=== PATIENT | male | born 1955 | race Caucasian/White ===

== ENCOUNTER → 2021-05-23 07:08 | Outpatient (CLI) | payer OTHER, SELFPAY ==
--- NOTE | 2021-05-23 07:18 | MRI_ITS ---
STUDY: MR PELVIS WITH AND WITHOUT CONTRAST (PROSTATE) REASON FOR EXAM: Male, 65 years old. Elevated PSA TECHNIQUE: Standardized multiparametric prostate MRI with T1, T2, DWI/ADC sequences were obtained in 3 orthogonal planes, and dynamic contrast enhancement sequences. 17 ml of Dotarem contrast material was administered intravenously for the contrast portion of the examination. COMPARISON: 09/23/2019 FINDINGS: The prostate volume measures 80 mm3. The contours of the prostate gland are lobulated. There is mass effect on the bladder base. The transition zone is heterogenous. PI-RADS DWI score 3 - Focal mildly hypointense on ADC and isointense/mildly hyperintense on high b-value DWI. PI-RADS T2W score 2 - A mostly encapsulated nodule OR a homogeneous circumscribed nodule without encapsulation (atypical nodule) or a homogeneous mildly hypointense area between nodules.. Contrast enhancement no early or contemporaneous enhancement; or diffuse multifocal enhancement NOT corresponding to a focal finding on T2W and/or DWI or focal ehancement responding to a lesion demonstrating features of BPH onT2WI (including features of extruded BPH in the PZ). The peripheral zone is heterogenous. PI-RADS DWI score 1 - No abnormality (normal) on ADC or high b-value DWI. PI-RADS T2W score 2 - Linear, wedge-shaped, or diffuse mild hypointensity, usually with indistinct margin. Contrast enhancement no early or contemporaneous enhancement; or diffuse multifocal enhancement NOT corresponding to a focal finding on T2W and/or DWI or focal enhancement responding to a lesion demonstrating features of BPH onT2WI (including features of extruded BPH in the PZ). The seminal vesicles demonstrate normal margins and T2 signal pattern. No mass lesion or invasion depicted. The rectoprostatic angles are normal. Urinary bladder is normal without wall thickening. The vascular structures of the are normal. The visualized hollow viscus structures are normal. No bone marrow edema or mass lesion depicted. MRI/Pelvis W/WO Contrast IMPRESSION: 1. PIRADS v2.1 2019 -- 2 - Low (clinically significant cancer is unlikely), which is stable since prior study (2020). Prostatomegaly with benign prostatic hypertrophy. Electronically Signed: Scott Cochran MD (Brooks) at 12:21 EDT , Service support ,
[2021-05-23 07:30] LABS: CREATININE FINGERSTICK 0.6 mg/dL (0.70-1.30); EGFR FINGERSTICK > 60.0000 mL/min (>60)
== END ==
LOC: MRI 07:10
PROVIDERS: PCP Internal Medicine; Referring Provider Urology; Visit Provider Urology
DX: R97.20 Elevated prostate specific antigen [PSA] (principal); C61 Malignant neoplasm of prostate
CPT/HCPCS: 72197; A9575

== ENCOUNTER → 2022-11-20 | Outpatient (CLI) | payer MEDICARE, OTHER, SELFPAY | END | disposition home or self-care (01) | LOC: LABSPEC 15:22 | PROVIDERS: PCP Internal Medicine; Referring Provider Physician Assistant; Visit Provider Physician Assistant | DX: J02.9 Acute pharyngitis, unspecified (principal) | CPT/HCPCS: 87070 ==

== ENCOUNTER 2023-04-29 10:26 | Observation (INO) | payer MEDICARE, OTHER, SELFPAY ==
--- NOTE | 2023-04-27 08:23 | EKG12_ITS ---
Test Reason : PRE OP Blood Pressure : / mmHG Vent. Rate : 059 BPM Atrial Rate : 059 BPM P-R Int : 106 ms QRS Dur : 090 ms QT Int : 416 ms P-R-T Axes : 054 062 070 degrees QTc Int : 411 ms Sinus bradycardia with short W[place] Otherwise normal ECG Confirmed by ALYSSA TRUJILLO, MICHAEL ([id number]), photographic editor JOSE ENRIQUE PIMENTEL ([id number]) on 04/28/2023 2:44:02 PM Referred By: Rinku Garcia Confirmed By:MICHAEL SHAH MD
[2023-04-29] VITALS (10 sets, daily range): BP systolic 152–176; BP diastolic 67–90; PULSE 56–88; RESP 16–18; TEMP 36.2–36.8; O2SAT 97–100; BMI 25.4
--- NOTE | 2023-04-29 | PROS_PTH ---
PATIENT: LARRY FIELD LOC: [facility] U#:[id number] AGE/SX: 67/M [place]OM: [facility] [place]29/[address]: Dr. Rinku Garcia MD : 1955 BED: 1 DIS: 04/30/2023 SPEC #: [id number] RECD: 04/29/23 10:40 STATUS: MCKAYLA DWYER #: [id number] IRMA: 04/29/23 00:[address]: Rinku Garcia DEPT: SURGICAL PATHOLOGY RECD BY: Nunu Pagan ENTERED: 04/29/23 12:36 SP TYPE: TURP OTHR DR: Dr. Kavya Kaur MD Tissues: Prostate, NOS Procedures: Surgery Specimen Level IV HEADER OPERATION: Cysto, transurethral resection prostate, Olympus PRE-OP DIAGNOSIS: BPH with obstruction TISSUE SUBMITTED: Prostate chips MICROSCOPIC DIAGNOSIS Prostate chips, transurethral resection: Benign prostatic hyperplasia, glandular and stromal type. Focal chronic inflammation. Rare fragments of calcified material, favor stone. SJ:yamila 04/30/2023 MICROSCOPIC DESCRIPTION Slides are reviewed. GROSS DESCRIPTION Received is one container labeled with the patient's name and designated prostate chips. The specimen consists of multiple irregular fragments of pink-kim, rubbery, soft tissue that in aggregate weigh 18.1 gm and measure in aggregate 6.0 x 6.0 x 1.7 cm. Board Runner portions are submitted in ten cassettes. / AM:yamila 04/29/2023 TC:5 CPT: 67270
[2023-04-29] MEDS: Lactated Ringers 1,000 ML 15 ML IV (08:17)
--- NOTE | 2023-04-29 09:12 | HP.PCM_ITS ---
HPI - General General Date of Service: 04/29/23 Chief Complaint: Bladder tumor HPI Narrative LARRY FIELD, is a 67 M who presents for transurethral resection of bladder tumor [facility] Medical History (Updated 04/29/23 @ 09:[address] Rinku Garcia MD) Acute pharyngitis, unspecified Alcohol use Arthritis Cardiology follow-up encounter Former smoker High cholesterol High triglycerides History of ankle fracture History of diverticulitis Hypertension Loss of hearing Marijuana use Prostate cancer Seasonal allergies Wears glasses Home Medications glucosamine sulfate 500 mg tablet (Glucosamine) 500 mg PO BID 09/17/20 [History Last Taken Unknown] [id number] 300 mcg-K 60 mcg-lycop 600 mcg-lutein 300 mcg tablet (Men 50 Plus Multivitamin) 1 tab PO DAILY 09/17/20 [History Last Taken Unknown] omega-3 fatty acids 1,000 mg capsule (Fish Oil Concentrate) 1,000 mg PO DAILY 09/17/20 [History Last Taken 04/10/23] finasteride 5 mg tablet 5 mg PO DAILY 09/18/22 [History Last Taken Unknown] lisinopril 10 mg tablet 10 mg PO DAILY #90 tabs 09/18/22 [Rx Last Taken Unknown] tamsulosin 0.4 mg capsule 0.8 mg PO QHS 04/24/23 [History Last Taken Unknown] Allergy/AdvReac Type Severity Reaction Status Date / Time No Known Allergies Allergy Verified 04/29/23 08:08 Family History Father Myocardial infarction, Onset Age: 63 Hypertension Heart disease Mother High cholesterol Hypertension Surgical History (Updated 04/24/23 @ 09:17 by Brigette Ramirez) History of arthroscopic knee surgery History of cardiac catheterization Hx of colonoscopy Hx of thumb surgery Social History Smoking Status: Former smoker Smokeless tobacco user: other Electronic Cigarette Use: not used second hand exposure: No alcohol intake: current alcohol intake frequency: a few times a week Alcohol type: beer substance use type: former substance user Date of last use: Used marijana in his teens ROS Constitutional Constitutional: Denies chills, fever(s) or malaise Eyes Eyes: Denies blurry vision or change in vision ENT HEENT: Reports none Cardiovascular Cardiovascular: Denies chest pain or palpitations Respiratory/Chest Respiratory/Chest: Denies cough or shortness of breath with exertion Gastrointestinal Gastrointestinal: Denies abdominal pain, constipation or diarrhea Musculoskeletal Musculoskeletal: Denies back pain, joint stiffness or joint swelling Integumentary Integumentary: Denies dry skin, jaundice, lesions or rash Neurologic Neurologic: Denies confusion, syncope or weakness Psychiatric Psychiatric: Reports none; Denies anxiety or depression Endocrine Endocrinology: Denies excessive sweating, fatigue or flushing Hematologic/Lymphatic Hematologic/Lymphatic: Denies anemia, easy bleeding or easy bruising Vital Signs Vital Signs Vital Signs: 04/29/23 08:11 04/29/23 08:11 Temperature 98.2 F Temperature Source Temporal Pulse Rate 60 Respiratory Rate 18 Respiratory Pattern Normal Blood Pressure 176/79 H Blood Pressure Mean 111 Blood Pressure Source Monitor Blood Pressure Position Sitting Blood Pressure Location Left Arm Pulse Ox 99 Oxygen Delivery Method Room Air Weight Weight: 85 kg Body Mass Index (BMI) 25.4 Physical Exam Const alert and oriented x3 General Appearance: cooperative HEENT normocephalic, head/scalp atraumatic, EAC's normal and TM's normal bilaterally Eyes PERRL and EOMs intact bilaterally Pupil: sluggish Neck no lymphadenopathy, supple and no JVD General: trachea midline Lymph Lymphatic: no lymphadenopathy noted, lymphedema and lymphadenopathy Resp normal respiratory effort, normal air movement and clear to auscultation bilaterally Cardio regular rate, regular rhythm and peripheral pulses 2+ throughout GI soft to palpation, non-tender and non-distended Extremity normal capillary refill and no clubbing, cyanosis or edema General Extremity: no tenderness to palpation of joints or extremities Skin no rashes or lesions noted General Skin Exam: turgor normal Lesions: no lesions Rashes: no rashes Neuro CN's II-XII intact bilaterally Speech: speech normal Motor Exam: strength 5/5 throughout; Negative for general weakness Psych thought process normal, cooperative and affect normal Appearance: appropriate Results Lab / Micro Data Attestation: I reviewed the patient's lab results. Assessment & Plan Assessment/Plan (1) Bladder tumor: PLAN: Plan for transurethral section of bladder tumor
[2023-04-29] MEDS: Cefazolin 2 GM in 0.9% Normal Saline (100mL Bag) 100 ML IV (09:29)
--- NOTE | 2023-04-29 10:19 | DCINST_ITS ---
Discharge Instructions Diet Discharge Diet: No restrictions and Light diet - advance as tolerated Activity Discharge Activity: Return to Normal Activity Follow Up Care Please Follow Up With: Rinku Garcia MD When: call for appt Test Results: Test results from this visit will be discussed in further detail at your follow- up appointment, if applicable. Discharge Plan Admission Attending Provider: Rinku Garcia Primary Care Provider: Kavya Kaur Discharge Orders/Prescriptions Prescriptions: No Action glucosamine sulfate [Glucosamine] 500 mg tablet 500 mg PO BID Rx Instructions: administer with meals omega-3 fatty acids [Fish Oil Concentrate] 1,000 mg capsule 1,000 mg PO DAILY Men 50 Plus Multivitamin 300-600-300 mcg tablet 1 tab PO DAILY finasteride 5 mg tablet 5 mg PO DAILY tamsulosin 0.4 mg capsule 0.8 mg PO QHS lisinopril 10 mg tablet 10 mg PO DAILY Qty: 90 3RF Other Ambulatory Orders: 12 Lead EKG (Routine) Timeframe: [id number] Facility: [facility] - Location: Cardiovascular Services Ordered By: Dr. Surjit White Referrals / Follow Up: Kavya Kaur MD [Primary Care Provider] - Disposition Disposition (needs filled in before D/C Order can be placed): Home, Self Care
--- NOTE | 2023-04-29 10:20 | PCM.OPRPT ---
Report of Operation Date of Procedure: 04/29/23 Pre-Operative Diagnosis: BPH with obstruction Post-Operative Diagnosis: The same Surgery/Procedure Performed:: Transurethral section of prostate Description of Surgical Findings:: This is a 67-year-old male with history of low-grade prostate cancer is on active surveillance for this he does have history of BPH with significant urinary symptoms and obstruction he is on maximal medical therapy with Flomax and Proscar and despite medical therapy still having difficulty with emptying his bladder slow stream slow emptying he is not happy with the way he is having to go bathroom frequently urgency pain and problems with urinating so organ to proceed with a transurethral resection of the prostate to alleviate the obstruction Patient was taken back to the operating at the smooth induction of general anesthesia he was placed in dorsolithotomy position. The penis testicles prepped and draped usual sterile fashion went into the bladder with a 24 Indonesian noncontinuous flow bipolar Olympus resectoscope using the median loop I marked out the sphincter marked out the right and from the verumontanum circumferentially the limit by my resection I then started at the 12 o'clock position and resected back to that maggie and then worked my way down to the 12 o'clock position to the 6 o'clock position on the right side of the prostate and then resected back to the verumontanum and then went to the left side the prostate resected back to the room and montanum again I then did a flow test had a wide open flow I then resected the apical tissue very carefully but sphincter looked intact no resection past the verumontanum and after the flow test was done I then cauterized extensively had good cauterization and obtain good hemostasis I then placed the catheter in the bladder for continuous irrigation the urine was clear all the chips were Ellik out of the bladder patient anesthetic was reversed and taken back to PACU in good condition we will keep him overnight for irrigation and then will take out the catheter tomorrow morning for voiding trial Surgeon: Rinku Garcia Type of Anesthesia: General Drains: [address] Estimated Blood Loss (mL): 20 Admit VTE Documentation VTE Present on Admission: No VTE Mechan Device Prophylaxis: SCD's VTE Pharm Prophylaxis ordered?: No
[2023-04-29] MEDS: Ciprofloxacin 500 MG Tablet PO (20:53)
[2023-04-29] MEDS: Tamsulosin HCl 0.4 MG Capsule 0.8 MG PO (20:53)
[2023-04-29] MEDS: 0.9% Normal Saline (1000mL) 1,000 ML 125 ML IV (20:53)
[2023-04-29] MEDS: Docusate Sodium 100 MG Capsule 200 MG PO (20:53)
[2023-04-30] MEDS: 0.9% Normal Saline (1000mL) 1,000 ML 125 ML IV (01:50)
[2023-04-30 05:00] VITALS: BP 144/73; PULSE 60; RESP 16; TEMP 36.6; O2SAT 98
--- NOTE | 2023-04-30 07:15 | PCM.PN.GU ---
Subjective Subjective Status post TURP urine is doing okay catheter can be removed this morning and as long as he can urinate okay to go home without a catheter. Objective Data Objective Data Vital Signs: Vital Signs Temp Pulse Resp BP Pulse Ox O2 Del Method 97.8 F 60 16 144/73 H 98 Room Air 04/30/23 05:00 04/30/23 05:00 04/30/23 05:00 04/30/23 05:00 04/30/23 05:00 04/30/23 05:00 Oxygen Delivery Method Room Air Weight: 85 kg Body Mass Index (BMI) 25.4 Intake & Output: Intake and Output for Last 24 Hours 04/28/23 04/29/23 04/30/23 23:59 23:59 23:59 Intake Total 1459.75 / 1459.75 618.75 / 618.75 Output Total 8000 / 8000 Balance -6540.25 / -6540.25 618.75 / 618.75
[2023-04-30 09:16] VITALS: BP 148/66; PULSE 70; RESP 16; TEMP 37; O2SAT 98
[2023-04-30] MEDS: Multivitamins,Ther W-Minerals Tablet 1 TABLET PO (09:25)
[2023-04-30] MEDS: Ciprofloxacin 500 MG Tablet PO (09:25)
[2023-04-30] MEDS: Lisinopril 10 MG Tablet PO (09:25)
[2023-04-30] MEDS: Finasteride 5 MG Tablet PO (09:25)
[2023-04-30] MEDS: Docusate Sodium 100 MG Capsule 200 MG PO (09:25)
--- NOTE | 2023-04-30 10:12 | PHA.DC_ITS ---
Pharmacy [facility] has performed discharge medication reconciliation and counseling for this patient. The patient was counseled on the following discharge medications and changes in medications for homegoing were reviewed. 1. CIPROFLOXACIN The Reason for Use, instructions for use, and potential side effects were reviewed for all new medications. The patient's questions regarding all of their medications were answered. The patient was able to verbally demonstrate an understanding of their discharge medications. The patient's discharge medication list was reviewed for discrepancies and discrepancies were resolved. Medications at Discharge Home Medications glucosamine sulfate 500 mg tablet (Glucosamine) 500 mg PO BID 09/17/20 [id number] 300 mcg-K 60 mcg-lycop 600 mcg-lutein 300 mcg tablet (Men 50 Plus Multivitamin) 1 tab PO DAILY 09/17/20 omega-3 fatty acids 1,000 mg capsule (Fish Oil Concentrate) 1,000 mg PO DAILY 09/17/20 finasteride 5 mg tablet 5 mg PO DAILY 09/18/22 lisinopril 10 mg tablet 10 mg PO DAILY #90 tabs 09/18/22 tamsulosin 0.4 mg capsule 0.8 mg PO QHS 04/24/23 ciprofloxacin HCl 500 mg tablet (Cipro) 500 mg PO BID #10 tabs 04/29/23
--- NOTE | 2023-04-30 11:43 | CHAPLAIN ---
Type of Pastoral Visit _x__ Initial Visit ___ Follow-up Visit ___ On-call Visit ___ General Patient Visit ___ Spiritual Assessment ___ Family Conference ___ Bereavement ___ Rapid Response ___ Code Blue ___ Other (describe below) Pastoral Care Referral From _x__ Patient ___ Family ___ Nurse ___ Physician ___ Beauty Culturist Apprentice ___ Production Line Mechanic ___ Other (describe below) Sacrament/Intervention _x__ Active listening ___ Anointing ___ Spiritism ___ Bereavement ___ Communion ___ Alysha exploration ___ ___ Life review ___ Prayer ___ Reconciliation ___ Sacrament of Sick ___ Supportive presence ___ Wedding ___ Other (describe below) Pastoral Comments patient reports that all things are going well and that he should be leaving today; pt has family support at home; pt is watching events out of the window and talks about his perceptions; pt declines further needs but expresses thanks for the offer
[2023-04-30 13:51] VITALS: BP 138/60; PULSE 63; RESP 16; TEMP 36.5; O2SAT 100
== END 2023-04-30 15:35 | disposition home or self-care (01) ==
LOC: SDC 17:26 → MS3 17:26
PROVIDERS: Admitting Provider Urology; PCP Internal Medicine; Referring Provider Urology; Visit Provider Urology
PROC: 0TBB8ZZ Excision of Bladder, Via Natural or Artificial Opening Endoscopic (ICD-10-PCS; CPT 52601; principal; 2023-04-29 09:35)
DX: N40.1 Benign prostatic hyperplasia with lower urinary tract symptoms (principal); I10 Essential (primary) hypertension; E78.00 Pure hypercholesterolemia, unspecified; Z87.891 Personal history of nicotine dependence; N13.8 Other obstructive and reflux uropathy; Z79.899 Other long term (current) drug therapy; R33.8 Other retention of urine; R35.1 Nocturia; R39.12 Poor urinary stream
CPT/HCPCS: 52601; 00914; 88305; 93005; 96360; 96361; 99221; J7030; J7120; G0378; J2405

== ENCOUNTER → 2023-11-21 | Outpatient (CLI) | payer MEDICARE, OTHER, SELFPAY ==
--- NOTE | 2023-11-21 07:38 | CT_ITS ---
STUDY: CT MAXILLOFACIAL SINUSES REASON FOR EXAM: Male, 68 years old. chronic sinusitis, nasal polyps RADIATION DOSAGE (If Supplied By Facility): CTDIvol = ( ) mGy, DLP = ( ) mGycm TECHNIQUE: The patient was scanned in a multi detector CT scanner. High resolution axial imaging was performed without the administration of intravenous contrast material. Sagittal and coronal images were reconstructed. Individualized dose optimization techniques were used for this CT. COMPARISON: 12/05/2013 FINDINGS: FRONTAL SINUSES: Mucosal thickening in the frontal sinuses consistent with chronic sinusitis. ETHMOIDAL SINUSES: Opacification multiple ethmoid air cells consistent with sinusitis. MAXILLARY SINUSES: Mucosal thickening in the maxillary sinuses worse on the right than the left consistent with chronic sinusitis. SPHENOIDAL SINUSES: Mucosal thickening in the sphenoid sinuses consistent with chronic sinusitis. Occluded ostiomeatal units bilaterally with possible destruction of a portion of the medial wall of the maxillary sinuses bilaterally. Normal bilateral middle turbinates. Normal bilateral inferior turbinates. There is a right sided nasal septal deviation, but without a nasal septal spur. There is patency of the bilateral nasal airways. The visualized osseous structures are normal. The visualized bilateral orbital contents are normal. CT/Sinus/Facial Bone IMPRESSION: 1. Chronic pansinusitis. 2. Occluded ostiomeatal units bilaterally with possible destruction of the medial wall of the maxillary sinuses. 3. Deviation of nasal septum to the right. Electronically Signed: Maico Maldonado MD at 0:15 EDT ,
== END | disposition home or self-care (01) ==
LOC: CT 07:37
PROVIDERS: PCP Internal Medicine; Referring Provider Otolaryngology; Visit Provider Otolaryngology
DX: J33.0 Polyp of nasal cavity (principal); J32.8 Other chronic sinusitis
CPT/HCPCS: 70486

== ENCOUNTER 2023-12-28 07:06 | Day surgery (SDC) | payer MEDICARE, OTHER, SELFPAY ==
--- NOTE | 2023-12-24 07:02 | EKG12_ITS ---
Test Reason : PREOP Blood Pressure : / mmHG Vent. Rate : 049 BPM Atrial Rate : 049 BPM P-R Int : 142 ms QRS Dur : 098 ms QT Int : 426 ms P-R-T Axes : 013 041 054 degrees QTc Int : 384 ms Sinus bradycardia Otherwise normal ECG Confirmed by Davey Rangel ([id number]), editor in chief newspaper ZOYA SEGURA ([id number]) on 12/28/2023 1:11:44 PM Referred By: Ravi Calderón Confirmed By:Davey Rangel
[2023-12-24 08:05] LABS: Hematocrit 42.6 % (40-54); Mean Corp Hgb Conc 32.9 g/dL (32-36); Mean Corpuscular Hgb 29.9 pg (27.0-32.0); Mean Platelet Vol. 9.5 fl (6.2-12.0); Platelet Count 251 K/mm3 (150-450); RBC Distribution Width CV 13.1 % (11.6-14.6); Red Blood Count 4.68 M/mm3 (4.6-6.2)
[2023-12-24 08:30] LABS: Anion Gap 4 (5-15); BUN 16 mg/dL (7-18); BUN/Creat Ratio 16.7 RATIO (10-20); Calcium,Total 9.1 mg/dL (8.5-10.1); Chloride 105 mmol/L (98-107); Creatinine, Serum 0.96 mg/dL (0.70-1.30); EST Glomerular Filtration Rate 84 mL/min (>60); Est Glom Filt Rate - Afr Amer 101 mL/min (>60); Glucose 94 mg/dL (74-106); Potassium 3.8 mmol/L (3.5-5.1); Sodium Level 136 mmol/L (136-145)
[2023-12-28] MEDS: Lactated Ringers 1,000 ML 15 ML IV (07:32)
[2023-12-28 07:33] VITALS: BP 140/78; PULSE 60; RESP 16; TEMP 36.4; O2SAT 98; BMI 25.1
[2023-12-28] MEDS: Oxymetazoline 0.05% 1 SPRAY SPRAY.BTL NASAL (07:36)
--- NOTE | 2023-12-28 08:45 | ETH_PTH ---
PATIENT: LARRY FIELD [place] [facility] [id number] AGE/SX: 68/M ROOM: RE12/28/[address]: Dr. Ravi Calderón MD : 1955 BED: DIS: 12/28/2023 SPEC #: [id number] RECD: 12/28/23 10:18 STATUS: MCKAYLA DWYER #: [id number] IRMA: 12/28/23 08:[address]: Ravi Calderón DEPT: SURGICAL PATHOLOGY RECD BY: Nunu Pagan ENTERED: 12/28/23 11:34 SP TYPE: ETH TISS OTHR DR: MD Dr. Kavya Howe MD Tissues: A - Ethmoid sinus, NOS B - Ethmoid sinus, NOS C - Nose, NOS Procedures: Decalcification bone/plaque Surgery Specimen Level IV HEADER OPERATION: Functional endoscopic sinus surgery, navigation PRE-OP DIAGNOSIS: Nasal cavity polyp, pansinusitis NOS, benign neoplasm of middle ear, nasal cavity, and accessory sinuses TISSUE SUBMITTED: A- Right sinus contents, B- Left sinus contents, C- Left intranasal mass MICROSCOPIC DIAGNOSIS A. Right sinus contents, curettings: Fragments of benign sinonasal polyp. Consistent with chronic sinusitis. Fragments of bone with no pathologic change. B. Left sinus contents, curettings: Fragments of benign sinonasal polyp. Consistent with chronic sinusitis. Fragments of bone with no pathologic change. C. Left intranasal mass, biopsy: Consistent with benign fibroma. AM/mr 12/31/2023 MICROSCOPIC DESCRIPTION Slides are reviewed. GROSS DESCRIPTION A. Received in fixative is one container labeled with the patient's name and designated Right sinus contents. The specimen consists of multiple fragments of kim soft tissue that in aggregate measure with fragments of bone in aggregate 4.0 x 2.5 x 0.3 cm. The specimen is totally submitted in two cassettes after decalcification. B. Received in fixative is one container labeled with the patient's name and designated Left sinus contents. The specimen consists of multiple fragments of kim soft tissue that in aggregate measure with fragments of bone in aggregate 2.5 x 2.0 x 0.3 cm. The specimen is totally submitted in one cassette after decalcification. C. Received in fixative is one container labeled with the patient's name and designated Left intranasal mass. The specimen consists of a piece of kim indurated nodule measuring 0.4 x 0.2 x 0.1cm. The entire specimen is submitted in one cassette after decalcificaiton. BOWEN/ 12/28/2023 TC:3 CPT: 81817g1,77377,14757
--- NOTE | 2023-12-28 08:58 | PCM.DC.SUM ---
Providers Primary Care Physician: Dr. Kavya Kaur MD Reason For Visit: Functional Endoscopic sinus Surgery, Excision intr Medications at Discharge Home Medications glucosamine sulfate 500 mg tablet (Glucosamine) 500 mg PO BID 09/17/20 [id number] 300 mcg-K 60 mcg-lycop 600 mcg-lutein 300 mcg tablet (Men 50 Plus Multivitamin) 1 tab PO DAILY 09/17/20 omega-3 fatty acids 1,000 mg capsule (Fish Oil Concentrate) 1,000 mg PO DAILY 09/17/20 lisinopril 10 mg tablet 10 mg PO DAILY #90 tabs 10/16/23 Weight / BMI Weight Weight: 84 kg Body Mass Index (BMI) 25.1 ABG / Lab / Microbiology Data 12/24/23 07:20 12/24/23 07:20 D/C Instructions Discharge Diet: No restrictions Additional Instructions: Start saline irrigation tomorrow. Irrigate 4x/day Please Follow Up With: Ravi Calderón MD When: next week Meaningful Use Info Meaningful Use Meaningful Use Diagnoses (Choose all that apply): None applicable Ischemic Stroke Statin Dosing Therapy Reference: STATIN DOSE THERAPY REFERENCE: * Patients > 75 years receive moderate or high dose statin therapy. * Patients 75 years or YOUNGER should receive HIGH intensity statin dose unless contraindicated. You will be required to document reason for non-treatment if statin daily dose does not meet guidelines. HIGH DOSE STATIN THERAPY DAILY Atorvastatin > than or = to 40 mg Rosuvastatin > than or = to 20 mg Amlodipine + Atorvastatin > than or = to 2.5/40 mg Ezetimibe + Simvastatin 10/80 mg Simvastatin 80mg Discharge Plan Admission Attending Provider: Ravi Calderón Primary Care Provider: Kavya Kaur Consulting Providers: Surjit White Instructions Print Language: Georgian Discharge Orders/Prescriptions Prescriptions: No Action glucosamine sulfate [Glucosamine] 500 mg tablet 500 mg PO BID Rx Instructions: administer with meals omega-3 fatty acids [Fish Oil Concentrate] 1,000 mg capsule 1,000 mg PO DAILY Men 50 Plus Multivitamin 300-600-300 mcg tablet 1 tab PO DAILY lisinopril 10 mg tablet 10 mg PO DAILY Qty: 90 3RF Referrals / Follow Up: Kavya Kaur MD [Primary Care Provider] - Disposition Disposition (needs filled in before D/C Order can be placed): Home, Self Care
--- NOTE | 2023-12-28 09:02 | PCM.OPRPT ---
Report of Operation Date of Procedure: 12/28/23 Pre-Operative Diagnosis: chronic sinusitis with polyposis Post-Operative Diagnosis: same Surgery/Procedure Performed:: bilateral total ethmoidectomy bilateral maxillary antrostomy excision of left intranasal mass use of navigation Surgeon: Ravi Calderón Type of Anesthesia: General Anesthesiologist: Surjit White Estimated Blood Loss (mL): minimal Description of Procedure: The patient was taken to the operating room on 12/28/2023. The patient was placed in the supine position on the operating table. The patient was given sufficient general endotracheal anesthesia. The head of bed was elevated 30 degrees. The navigation system was placed and verified per protocol and found to be accurate. 0 and 30 degrees rigid nasal endoscopes were used throughout the entire case. The middle turbinate uncinate process and polyps were injected with 1% lidocaine with epinephrine bilaterally. The right middle turbinate was medialized with a [place] elevator. Polyp was removed from the middle meatus using a sinus shaver. A ball-tipped sinus seeker was placed into the patient's maxillary sinus. The antrostomy was created with a backbiter and further widened with Burt-Cut forceps. The uncinate process was taken down using a microdebrider. Next, the ethmoid bulla was opened with a small curette. Anterior and posterior ethmoidectomy were then carried out using curette, sinus shaver and 45 degree [place]akesley Lucian forceps. Ethmoid cells were verified for relation to the skull base and orbit prior to being entered with the navigation system. I then placed Afrin pledgets into the sinonasal cavity. Next attention was turned to the left side. The middle turbinate was medialized with a [place] elevator. A large polyp was removed from the middle meatus using a sinus shaver. The uncinate process was taken down using a sinus shaver. The maxillary antrostomy was created with a backbiter and Burt-Cut forceps. The ethmoid bulla was opened with a small curette. Anterior posterior ethmoidectomy were then carried out using a sinus shaver curette and Blakesley Lucian forceps. Ethmoid cells were verified for relation to the skull base and orbit prior to being entered with the navigation system. Hemostasis was then achieved using Afrin pledgets. I injected 1% lidocaine with epinephrine into the intranasal mass. This was located at the nasal vestibule superiorly just adjacent to the soft triangle. The lesion was excised in an ellipse with a 15 blade. This was sent for permanent section. I then closed the incision with interrupted 5-0 fast-absorbing gut. The pledgets were then removed bilaterally and Paul powder was applied bilaterally for absolute hemostasis. The procedure was then terminated. The patient was then awoken and brought to the recovery room in stable condition blood loss less than 5 cc, replacement none. Sponge, needle, instrument count were correct at the end of the procedure.
[2023-12-28] MEDS: Lidocaine 1% /Epi 1:100 (20ml) 20 ML Vial (09:12)
[2023-12-28] MEDS: Oxymetazoline 0.05% 1 SPRAY SPRAY.BTL 15 SPRAY (09:12)
[2023-12-28 10:05] VITALS: BP 140/78; BP 178/83; PULSE 79; RESP 18; TEMP 36.2; O2SAT 98
[2023-12-28 10:09] VITALS: BP 140/78; BP 168/76; PULSE 71; RESP 14; O2SAT 96
[2023-12-28 10:14] VITALS: BP 140/78; BP 173/85; PULSE 67; RESP 14; O2SAT 97
[2023-12-28 10:20] VITALS: BP 140/78; BP 168/84; PULSE 60; RESP 14; O2SAT 96
[2023-12-28 10:24] VITALS: BP 140/78; BP 170/72; PULSE 62; RESP 18; TEMP 36.1; O2SAT 99
[2023-12-28] MEDS: Acetaminophen 325 MG Tablet 650 MG PO (11:02)
== END 2023-12-28 11:20 | disposition home or self-care (01) ==
LOC: SDC 07:07 → AC 07:08
PROVIDERS: PCP Internal Medicine; Referring Provider Otolaryngology; Visit Provider Otolaryngology
PROC: (CPT 31255; principal; 2023-12-28 08:15)
DX: J32.4 Chronic pansinusitis (principal); J33.8 Other polyp of sinus; I10 Essential (primary) hypertension; Z79.899 Other long term (current) drug therapy; Z87.891 Personal history of nicotine dependence
CPT/HCPCS: 31255; 31256; 30110; 00160; 36415; 80048; 85027; 88305; 88311; 93005; J7120; J2405